=== PATIENT | female | born 1950 | race American Indian/Alaskan Native ===

== ENCOUNTER 2021-04-20 17:11 | Inpatient (IN) | payer MEDICARE, BC ==
[2021-04-20] MEDS ORDERED: Albuterol 0.083% 2.5 MG/3 ML Neb Soln NEB PRN (17:59)
[2021-04-20] MEDS ORDERED: Ondansetron 4 MG/2 ML SDV IV PRN (17:59)
[2021-04-20] MEDS ORDERED: LORazepam 2 MG/ML SDV IVPUSH PRN (17:59)
[2021-04-20] MEDS ORDERED: Ondansetron 4 MG Tab.DIS PO PRN (17:59)
[2021-04-20] MEDS ORDERED: Magnesium Hydroxide 400 MG/5 ML Susp 30 ML Cup PO PRN (17:59)
[2021-04-20] MEDS ORDERED: Benzonatate 100 MG Cap PO PRN (18:03)
[2021-04-20] MEDS ORDERED: Codeine/guaiFENesin 10-100 MG/5 ML Syrup 5 ML Cup PO PRN (18:04)
--- NOTE | 2021-04-20 18:13 | PCM.HP.2 ---
H&P History of Present Illness - General Date of Service: 04/20/21 Admit Problem/Dx: Admission Diagnosis/Problem Admission Diagnosis/Problem Bronchiectasis with acute exacerbation Source of Information: Patient, Family, Provider History Limitations: Reports: No Limitations - History of Present Illness Initial Comments - Free Text/Narative: CC: I keep coughing HPI: Iris presented initially to the [facility] and was sent for admission because the local hospital was full. She reports 4 days of progressive cough and shortness of breath as well as weakness. Cough is productive for yellow sputum. She has had subjective fevers and chills at home. She has had a decrease in her appetite, energy and strength. Initially her shortness of breath was mild but has progressed over the last few days to the point that she is short of breath walking even short distances. She is not able to speak in a full sentence without a short pause to catch her breath. She does not report any pleuritic chest pain. She is not aware of any sick contacts. She has traveled to visit her sister in an acute rehab facility over the past couple of weeks. No one else in the home is sick. She does have a history of bronchiectasis and is on rotating antibiotics for 1 week out of the month and when she gets sick she takes azithromycin daily. She has been taking this daily for the past week and has continued to get worse. She does not report myalgias or an increase in joint discomfort with her chronic rheumatoid arthritis. Work-up at the clinic revealed a normal white blood cell count. Chest x-ray did not reveal any definitive infiltrate. She was noted to be hypoxic and required supplemental oxygen. She was given ceftriaxone, azithromycin as well as Solu- Medrol. She was sent here for direct admission. - Related Data Allergies/Adverse Reactions: Allergies Allergy/AdvReac Type Severity Reaction Status Date / Time amoxicillin [From Augmentin] Allergy Rash Verified 04/20/21 17:30 clavulanic acid Allergy Rash Verified 04/20/21 17:30 [From Augmentin] doxycycline Allergy Rash Verified 04/20/21 17:30 gold Au 198 Allergy Rash Verified 04/20/21 17:30 leflunomide [From Arava] Allergy Rash Verified 04/20/21 17:30 methotrexate Allergy Rash Verified 04/20/21 17:30 sulfamethoxazole Allergy Rash Verified 04/20/21 17:30 [From Bactrim] trimethoprim [From Bactrim] Allergy Rash Verified 04/20/21 17:30 Home Medications: Home Meds Acetylcysteine [Mucomyst 20%] 200 mg NEB TID PRN 04/20/21 [History] Albuterol [Proventil Neb Soln] 2.5 mg NEB TID PRN 04/20/21 [History] Azithromycin 500 mg PO DAILY 04/20/21 [History] Calcium Carbonate/Vitamin D3 [Calcium 500 + Vit D 400] 1 tab PO BID 04/20/21 [History] Cefdinir [Omnicef] 300 mg PO ASDIRECTED 04/20/21 [History] Hydroxychloroquine Sulfate [Plaquenil] 200 mg PO BID 04/20/21 [History] Sodium Chloride for Inhalation [Sodium Chloride] 3 ml IH TID PRN 04/20/21 [History] guaiFENesin [Mucinex] 1,200 mg PO BID 04/20/21 [History] predniSONE [Prednisone] 5 mg PO PCDINNER 04/20/21 [History] Past Medical History Respiratory History: Reports: Other (See Below) (bronchiectasis since childhood) Musculoskeletal History: Reports: RA Social & Family History - Family History Respiratory: Denies: COPD, Interstitial Lung Disease - Tobacco Use Tobacco Use Status *Q: Never Tobacco User Tobacco Use Within Last Twelve Months: No - Alcohol Use Alcohol Use History: No Alcohol Use in Last Twelve Months: No - Recreational Drug Use Recreational Drug Use: No Drug Use in Last 12 Months: No H&P Review of Systems - Review of Systems: Review Of Systems: See Below Free Text/Narrative: A complete 12 point review of systems was obtained. Pertinent positives and negatives are noted in the history of present illness. All other systems were reviewed and were negative except as noted. Exam - Exam Exam: See Below - Vital Signs Vital Signs: Last Vital Signs Temp 36.6 C 04/20/21 17:28 Pulse 96 04/20/21 17:28 Resp 16 04/20/21 17:28 BP 130/78 04/20/21 17:28 Pulse Ox 93 L 04/20/21 17:28 Weight: 88.042 kg - Exam Quality Assessment: Supplemental Oxygen General: Alert, Oriented, Cooperative, Mild Distress HEENT: Conjunctiva Clear. No: Mucosa Moist & [place] (dry), Scleral Icterus Neck: Supple, Trachea Midline. No: JVD Lungs: Crackles (diffuse L>R posteriorly and R>L anteriorly ), Wheezing (mild diffuse mid to end expiratory L>R). No: Normal Respiratory Effort (increased work of breathing ) Cardiovascular: Regular Rate, Regular Rhythm. No: Systolic Murmur GI/Abdominal Exam: Normal Bowel Sounds, Soft, Non-Tender, No Distention Back Exam: Normal Inspection, Full Range of Motion Extremities: No Pedal Edema, Other (enlarged MCP and PCP joints on both hands c/w RA). No: Joint Swelling, Increased Warmth Peripheral Pulses: 2+: Dorsalis Pedis (L), Dorsalis Pedis (R) Skin: Warm, Dry. No: Rash Neuro Extensive - Mental Status: Alert, Oriented x3, Nl Response to Commands Neuro Extensive - Motor, Sensory, Reflexes: No: Dysarthria, Abnormal Motor, Tremor Psychiatric: Alert, Normal Affect - Patient Data Imaging Impressions Last 24 hrs: CXR-images not available for review-per report lungs were clear with no obvious mass or infiltrate #1 Interpretation EKG Date: 04/20/21 Time: 13:30 Rhythm: Other (Sinus tachycardia) Rate (Beats/Min): 103 Seaview: RAD-Right Seaview Deviation P-Wave: Present QRS: Normal ST-T: Normal QT: Normal AL/PQ Interval: Normal Comparison: NA - No Prior EKG EKG Interpretation Comments: This EKG image was personally reviewed at the time of admission Sepsis Event Note - Evaluation Sepsis Screening Result: No Definite Risk - Focused Exam Vital Signs: Vital Signs Temp Pulse Resp BP Pulse Ox 04/20/21 17:28 36.6 C 96 16 130/78 93 L *Q Meaningful Use (ADM) - VTE Risk Assess *Q Each Risk Factor Represents 1 Point: Obesity ( BMI > 25 kg/m2), Serious lung disease including pneumonia, Abnormal Pulmonary Function (COPD) Total Score 1 Point Risk Factors: 3 Each Risk Factor Represents 2 Points: Age 60 - 74 Years Total Score 2 Point Risk Factors: 2 Each Risk Factor Represents 3 Points: None Total Score 3 Point Risk Factors: 0 Each Risk Factor Represents 5 Points: None Total Score 5 Point Risk Factors: 0 Venous Thromboembolism Risk Factor Score *Q: 5 - Problem List (1) Bronchiectasis with acute exacerbation Status: Acute Current Visit: Yes (2) Acute respiratory failure with hypoxia SNOMED Code(s): 27302812, 336997334 ICD Code: J96.01 - ACUTE RESPIRATORY FAILURE WITH HYPOXIA Status: Acute Current Visit: Yes (3) Rheumatoid arthritis SNOMED Code(s): 55576499 ICD Code: M06.9 - RHEUMATOID ARTHRITIS, UNSPECIFIED Status: Chronic Current Visit: Yes Qualifiers: Rheumatoid arthritis location: multiple sites Rheumatoid factor presence: unspecified presence Qualified Code(s): M06.9 - Rheumatoid arthritis, unspecified Problem List Initiated/Reviewed/Updated: Yes Orders Last 24hrs: Active Orders 24 hr Category Date Time Status Patient Status [ADT] Routine ADT 04/20/21 17:59 Ordered Antiembolic Devices [RC] .Routine Care 04/20/21 17:59 Ordered Intake and Output [RC] QSHIFT Care 04/20/21 17:59 Ordered Notify Provider Vital Signs [RC] ASDIRECTED Care 04/20/21 17:59 Ordered Oxygen Therapy [RC] PRN Care 04/20/21 17:59 Ordered RT Aerosol Therapy [RC] ASDIRECTED Care 04/20/21 18:02 Ordered Up With Assistance [RC] ASDIRECTED Care 04/20/21 17:59 Ordered VTE/DVT Education [RC] Per Unit Routine Care 04/20/21 17:59 Ordered Vital Signs [RC] Q4H Care 04/20/21 17:59 Ordered Regular Diet [DIET] Diet 04/20/21 Dinner Ordered BASIC METABOLIC PANEL,BMP [CHEM] AM Lab 04/21/21 05:11 Ordered C-REACTIVE PROTEIN [CHEM] AM Lab 04/21/21 05:11 Ordered CBC W/O DIFF,HEMOGRAM [HEME] AM Lab 04/21/21 05:11 Ordered CULTURE RESPIRATORY + SMEAR [RM] Routine Lab 04/20/21 17:58 Ordered Acetaminophen [TylenoL] Med 04/20/21 17:59 Ordered 650 mg PO Q4H PRN Acetylcysteine [Mucomyst 20%] Med 04/20/21 21:00 Ordered 200 mg NEB TIDRT Albuterol [Proventil Neb Soln] Med 04/20/21 17:59 Ordered 2.5 mg NEB Q4H PRN Albuterol/Ipratropium [DuoNeb 3.0-0.5 MG/3 ML] Med 04/20/21 22:00 Ordered 3 ml NEB QID Benzonatate [Tessalon Perles] Med 04/20/21 18:03 Ordered 100 mg PO TID PRN Codeine/guaiFENesin [Robitussin AC] Med 04/20/21 18:04 Ordered 10 ml PO Q6H PRN Docusate Sodium/Sennosides [Senna Plus] Med 04/20/21 17:59 Ordered 1 tab PO BID PRN Hydroxychloroquine [Plaquenil] Med 04/20/21 21:00 Ordered 200 mg PO BID LORazepam [Ativan] Med 04/20/21 17:59 Ordered 0.5 mg IVPUSH Q4H PRN Lactobacillus Rhamnosus GG [Culturelle] Med 04/20/21 21:00 Ordered 1 cap PO BID Levofloxacin/Dextrose 5%-Water [Levaquin in D5W 750 MG/ Med 04/20/21 18:15 Ordered 150 ML] 750 mg Premix Bag 1 bag IV Q24H Magnesium Hydroxide [Milk of Magnesia] Med 04/20/21 17:59 Ordered 30 ml PO Q12H PRN Melatonin Med 04/20/21 17:59 Ordered 9 mg PO BEDTIME PRN Ondansetron [Zofran ODT] Med 04/20/21 17:59 Ordered 4 mg PO Q6H PRN Ondansetron [Zofran] Med 04/20/21 17:59 Ordered 4 mg IV Q6H PRN Sodium Chloride 0.9% [Normal Saline] 1,000 ml Med 04/20/21 18:00 Ordered IV ASDIRECTED cefTRIAXone [Rocephin] 1 gm Med 04/21/21 14:00 Ordered Sodium Chloride 0.9% [Normal Saline] 50 ml IV Q24H methylPREDNISolone Sod Succ [Solu-MEDROL] Med 04/20/21 21:00 Once 62.5 mg IVPUSH ONETIME ONE oxyCODONE Med 04/20/21 17:59 Ordered 5 mg PO Q4H PRN predniSONE Med 04/21/21 08:00 Ordered 40 mg PO WITHBREAKFAST RT Acapella [RESPCARE] Routine Oth 04/20/21 18:04 Ordered Sequential Compression Device [OM.PC] Routine Oth 04/20/21 17:59 Ordered Resuscitation Status Routine Resus Stat 04/20/21 17:59 Ordered Medication Orders Acetaminophen (Acetaminophen 325 Mg Tab) 650 mg PO Q4H PRN PRN Reason: Pain (Mild 1-3)/fever Acetylcysteine (Acetylcysteine 20% 200 Mg/Ml 4 Ml Nebulizer Soln Sdv) 200 mg NEB TIDRT KEVON Albuterol (Albuterol 0.083% 2.5 Mg/3 Ml Neb Soln) 2.5 mg NEB Q4H PRN PRN Reason: Shortness Of Breath/wheezing Albuterol/Ipratropium (Albuterol/Ipratropium 3.0-0.5 Mg/3 Ml Neb Soln) 3 ml NEB QID KEVON Benzonatate (Benzonatate 100 Mg Cap) 100 mg PO TID PRN PRN Reason: Cough Guaifenesin/Codeine Phosphate (Codeine/Guaifenesin 10-100 Mg/5 Ml Syrup 5 Ml Cup) 10 ml PO Q6H PRN PRN Reason: Cough Hydroxychloroquine Sulfate (Hydroxychloroquine 200 Mg Tab) 200 mg PO BID [facility] Sodium Chloride (Normal Saline) 1,000 mls @ 100 mls/hr IV ASDIRECTED [facility] Levofloxacin/Dextrose 750 mg/ (Premix) 150 mls @ 100 mls/hr IV Q24H KEVON Ceftriaxone Sodium 1 gm/ (Sodium Chloride) 50 mls @ 100 mls/hr IV Q24H KEVON Lactobacillus Rhamnosus (Lactobacillus Rhamnosus Gg (Probiotic) Cap) 1 cap PO BID KEVON Lorazepam (Lorazepam 2 Mg/Ml Sdv) 0.5 mg IVPUSH Q4H PRN PRN Reason: Nausea/Vomiting Magnesium Hydroxide (Magnesium Hydroxide 400 Mg/5 Ml Susp 30 Ml Cup) 30 ml PO Q12H PRN PRN Reason: Constipation Melatonin (Melatonin 3 Mg Tab) 9 mg PO BEDTIME PRN PRN Reason: Sleep Methylprednisolone Sodium Succinate (Methylprednisolone Sodium Succinate 125 Mg/2 Ml Sdv) 62.5 mg IVPUSH ONETIME ONE Stop: 04/20/21 21:01 Ondansetron HCl (Ondansetron 4 Mg/2 Ml Sdv) 4 mg IV Q6H PRN PRN Reason: Nausea/Vomiting Ondansetron HCl (Ondansetron 4 Mg Tab.Dis) 4 mg PO Q6H PRN PRN Reason: Nausea able to take PO Oxycodone HCl (Oxycodone 5 Mg Tab) 5 mg PO Q4H PRN PRN Reason: Pain (moderate 4-6) Prednisone (Prednisone 20 Mg Tab) 40 mg PO WITHBREAKFAST KEVON Senna/Docusate Sodium (Docusate Sodium/Sennosides 50-8.6 Mg Tab) 1 tab PO BID PRN PRN Reason: Constipation Assessment/Plan Comment:: ASSESSMENT AND PLAN - Bronchiectasis with acute exacerbation-complicated by reactive airway disease as well as acute respiratory failure with hypoxia. Currently requiring supplemental oxygen. She has been declining despite outpatient antibiotics. History of previous cultures growing out Pseudomonas. -Antibiotic coverage with levofloxacin and ceftriaxone -Scheduled and as needed albuterol nebulizers -Scheduled acetylcysteine nebulizers -IV steroids today, transition to prednisone in the morning -Acapella -Respiratory culture Rheumatoid arthritis-chronic. No increase in symptoms recently. She is on chronic prednisone therapy. -She will be on increased steroid dosing as above -Continue hydroxychloroquine Maintenance issues - -DVT prophylaxis-mechanical -GI prophylaxis-not indicated -Nutrition-regular -Aiken catheter-not indicated CODE STATUS -CPR okay but no intubation Admission justification -this patient will be admitted for inpatient services and is medically appropriate meeting medical necessity for inpatient admission as outlined in my documentation. I reasonably expect the patient will require inpatient services that span a period time over 2 midnights. I reasonably expect this patient to be discharged or transferred within 96 hours [facility]. Disposition -I anticipate discharge home after the hospital stay Primary care physician - Maranda Tineo M.D. - Mortality Measure Prognosis:: Good
[2021-04-20] MEDS: Levofloxacin/Dextrose 5%-Water 750 MG in Premix Bag 1 BAG IV SCH (18:29)
[2021-04-20] MEDS: Acetaminophen 325 MG Tab PO PRN (18:30)
[2021-04-20] MEDS: Sodium Chloride 0.9% 1,000 ML IV SCH (18:30)
[2021-04-20] MEDS ORDERED: LORazepam 0.5 MG Tab ONE (18:43)
[2021-04-20] MEDS: LORazepam 0.5 MG Tab PO PRN (18:47)
[2021-04-20] MEDS: Hydroxychloroquine 200 MG Tab PO SCH (20:52)
[2021-04-20] MEDS: Lactobacillus Rhamnosus GG (Probiotic) Cap PO SCH (20:52)
[2021-04-20] MEDS: Acetylcysteine 20% 200 MG/ML 4 ML Nebulizer Soln SDV NEB SCH (20:53)
[2021-04-20] MEDS: Albuterol/Ipratropium 3.0-0.5 MG/3 ML Neb Soln NEB SCH (20:53)
[2021-04-20] MEDS ORDERED: methylPREDNISolone Sodium Succinate 125 MG/2 ML SDV IVPUSH ONE (21:00)
[2021-04-20] MEDS: Melatonin 3 MG Tab PO PRN (21:23)
[2021-04-21] MEDS: LORazepam 0.5 MG Tab PO PRN ×3 (03:55→21:09)
[2021-04-21] MEDS: Acetaminophen 325 MG Tab PO PRN ×2 (04:22→21:08)
[2021-04-21] MEDS: Sodium Chloride 0.9% 1,000 ML IV SCH (05:43)
[2021-04-21] MEDS: Albuterol/Ipratropium 3.0-0.5 MG/3 ML Neb Soln NEB SCH ×4 (07:01→21:09)
[2021-04-21] MEDS: Acetylcysteine 20% 200 MG/ML 4 ML Nebulizer Soln SDV NEB SCH ×3 (07:39→21:10)
[2021-04-21] MEDS: Hydroxychloroquine 200 MG Tab PO SCH ×2 (08:22→21:18)
[2021-04-21] MEDS: Lactobacillus Rhamnosus GG (Probiotic) Cap PO SCH ×2 (08:22→21:18)
[2021-04-21] MEDS: predniSONE 20 MG Tab PO SCH (08:22)
--- NOTE | 2021-04-21 09:46 | PCM.PN ---
- General Info Date of Service: 04/21/21 Subjective Update: There were no acute events overnight. Patient did have some mild anxiety in the evening that resolved after a dose of lorazepam. She did not have any fevers. She feels a little less short of breath today but still gets winded with activity. Cough continues to be loose and occasionally productive. No chest pain reported. No nausea. Appetite is a little better today. Still requiring supplemental oxygen. Functional Status: Reports: Pain Controlled - Review of Systems General: Denies: Fever - Patient Data Vitals - Most Recent: Last Vital Signs Temp 36.4 C 04/21/21 08:00 Pulse 102 H 04/21/21 08:00 Resp 24 H 04/21/21 08:00 BP 107/59 L 04/21/21 08:00 Pulse Ox 92 L 04/21/21 08:00 Weight - Most Recent: 88.042 kg I&O - Last 24 Hours: Intake & Output 04/20/21 04/21/21 04/21/21 22:59 06:59 14:59 Intake Total 1820 Output Total 100 900 Balance -100 920 Lab Results Last 24 Hours: Laboratory Results - last 24 hr 04/21/21 04/21/21 Range/Units 05:00 05:00 WBC 13.1 H (4.5-11.0) K/uL RBC 4.22 (3.30-5.50) M/uL Hgb 12.1 (12.0-15.0) g/dL Hct 38.9 (36.0-48.0) % MCV 92 (80-98) fL MCH 29 (27-31) pg MCHC 31 L (32-36) % Plt Count 282 (150-400) K/uL Sodium 139 L (140-148) mmol/L Potassium 4.2 (3.6-5.2) mmol/L Chloride 104 (100-108) mmol/L Carbon Dioxide 28 (21-32) mmol/L Anion Gap 11.2 (5.0-14.0) mmol/L BUN 11 (7-18) mg/dL Creatinine 0.8 (0.6-1.0) mg/dL Est Cr Clr Drug Dosing 65.06 mL/min Estimated GFR (MDRD) > 60 (>60) Glucose 155 H (74-106) mg/dL Calcium 7.9 L (8.5-10.1) mg/dL C-Reactive Protein 13.71 H (0.0-0.3) mg/dL Kwame Results Last 24 Hours: Microbiology 04/20/21 17:58 Gram Stain - Final Sputum - Expectorated Med Orders - Current: Current Medications Acetaminophen (Acetaminophen 325 Mg Tab) 650 mg PO Q4H PRN PRN Reason: Pain (Mild 1-3)/fever Last Admin: 04/21/21 04:22 Dose: 650 mg Documented by: Acetylcysteine (Acetylcysteine 20% 200 Mg/Ml 4 Ml Nebulizer Soln Sdv) 200 mg NEB TID@0700,1500,2100 [facility] Albuterol (Albuterol 0.083% 2.5 Mg/3 Ml Neb Soln) 2.5 mg NEB Q4H PRN PRN Reason: Shortness Of Breath/wheezing Last Admin: 04/21/21 04:16 Dose: 2.5 mg Documented by: Albuterol/Ipratropium (Albuterol/Ipratropium 3.0-0.5 Mg/3 Ml Neb Soln) 3 ml NEB QIDRT [facility] Last Admin: 04/21/21 07:01 Dose: 3 ml Documented by: Benzonatate (Benzonatate 100 Mg Cap) 100 mg PO TID PRN PRN Reason: Cough Guaifenesin/Codeine Phosphate (Codeine/Guaifenesin 10-100 Mg/5 Ml Syrup 5 Ml Cup) 10 ml PO Q6H PRN PRN Reason: Cough Hydroxychloroquine Sulfate (Hydroxychloroquine 200 Mg Tab) 200 mg PO BID [facility] Last Admin: 04/21/21 08:22 Dose: 200 mg Documented by: Levofloxacin/Dextrose 750 mg/ (Premix) 150 mls @ 100 mls/hr IV Q24H [facility] Last Admin: 04/20/21 18:29 Dose: 100 mls/hr Documented by: Ceftriaxone Sodium 1 gm/ (Sodium Chloride) 50 mls @ 100 mls/hr IV Q24H [facility] Lactobacillus Rhamnosus (Lactobacillus Rhamnosus Gg (Probiotic) Cap) 1 cap PO BID [facility] Last Admin: 04/21/21 08:22 Dose: 1 cap Documented by: Lorazepam (Lorazepam 2 Mg/Ml Sdv) 0.5 mg IVPUSH Q4H PRN PRN Reason: Nausea/Vomiting Lorazepam (Lorazepam 0.5 Mg Tab) 0.5 mg PO Q4H PRN PRN Reason: Anxiety Last Admin: 04/21/21 03:55 Dose: 0.5 mg Documented by: Magnesium Hydroxide (Magnesium Hydroxide 400 Mg/5 Ml Susp 30 Ml Cup) 30 ml PO Q12H PRN PRN Reason: Constipation Melatonin (Melatonin 3 Mg Tab) 9 mg PO BEDTIME PRN PRN Reason: Sleep Last Admin: 04/20/21 21:23 Dose: 9 mg Documented by: Ondansetron HCl (Ondansetron 4 Mg/2 Ml Sdv) 4 mg IV Q6H PRN PRN Reason: Nausea/Vomiting Ondansetron HCl (Ondansetron 4 Mg Tab.Dis) 4 mg PO Q6H PRN PRN Reason: Nausea able to take PO Oxycodone HCl (Oxycodone 5 Mg Tab) 5 mg PO Q4H PRN PRN Reason: Pain (moderate 4-6) Prednisone (Prednisone 20 Mg Tab) 40 mg PO WITHBREAKFAST [facility] Last Admin: 04/21/21 08:22 Dose: 40 mg Documented by: Senna/Docusate Sodium (Docusate Sodium/Sennosides 50-8.6 Mg Tab) 1 tab PO BID PRN PRN Reason: Constipation Discontinued Medications Acetylcysteine (Acetylcysteine 20% 200 Mg/Ml 4 Ml Nebulizer Soln Sdv) 200 mg NEB TIDRT [facility] Last Admin: 04/21/21 07:39 Dose: 200 mg Documented by: Sodium Chloride (Normal Saline) 1,000 mls @ 100 mls/hr IV ASDIRECTED [facility] Last Admin: 04/21/21 05:43 Dose: 100 mls/hr Documented by: Lorazepam (Lorazepam 0.5 Mg Tab) Confirm Administered Dose 0.5 mg .ROUTE .STK- MED ONE Stop: 04/20/21 18:44 Last Admin: 04/20/21 18:47 Dose: Not Given Documented by: Methylprednisolone Sodium Succinate (Methylprednisolone Sodium Succinate 125 Mg/2 Ml Sdv) 62.5 mg IVPUSH ONETIME ONE Stop: 04/20/21 21:01 Last Admin: 04/20/21 20:52 Dose: 62.5 mg Documented by: - Exam Quality Assessment: Supplemental Oxygen General: Alert, Oriented, Cooperative, No Acute Distress Lungs: Normal Respiratory Effort, Crackles (mild diffuse) Cardiovascular: Regular Rate, Regular Rhythm GI/Abdominal Exam: Soft, No Distention Extremities: No Pedal Edema. No: Increased Warmth Skin: Warm, Dry Psy/Mental Status: Alert, Normal Affect - Patient Data Lab Results Last 24 hrs: Laboratory Results - last 24 hr 04/21/21 04/21/21 Range/Units 05:00 05:00 WBC 13.1 H (4.5-11.0) K/uL RBC 4.22 (3.30-5.50) M/uL Hgb 12.1 (12.0-15.0) g/dL Hct 38.9 (36.0-48.0) % MCV 92 (80-98) fL MCH 29 (27-31) pg MCHC 31 L (32-36) % Plt Count 282 (150-400) K/uL Sodium 139 L (140-148) mmol/L Potassium 4.2 (3.6-5.2) mmol/L Chloride 104 (100-108) mmol/L Carbon Dioxide 28 (21-32) mmol/L Anion Gap 11.2 (5.0-14.0) mmol/L BUN 11 (7-18) mg/dL Creatinine 0.8 (0.6-1.0) mg/dL Est Cr Clr Drug Dosing 65.06 mL/min Estimated GFR (MDRD) > 60 (>60) Glucose 155 H (74-106) mg/dL Calcium 7.9 L (8.5-10.1) mg/dL C-Reactive Protein 13.71 H (0.0-0.3) mg/dL Result Diagrams: 04/21/21 05:00 04/21/21 05:00 Kwame Results Last 24 hrs: Microbiology 04/20/21 17:58 Gram Stain - Final Sputum - Expectorated Sepsis Event Note - Evaluation Sepsis Screening Result: Sepsis Risk - Focused Exam Vital Signs: Vital Signs Temp Pulse Resp BP Pulse Ox 04/21/21 08:00 36.4 C 102 H 24 H 107/59 L 92 L 04/21/21 04:00 36.6 C 28 H 140/78 94 L 04/21/21 00:00 36.6 C 24 H 104/56 L 97 - Problem List & Annotations (1) Bronchiectasis with acute exacerbation Status: Acute Current Visit: Yes (2) Acute respiratory failure with hypoxia SNOMED Code(s): 96433548, 990046909 Code(s): J96.01 - ACUTE RESPIRATORY FAILURE WITH HYPOXIA Status: Acute Current Visit: Yes (3) Rheumatoid arthritis SNOMED Code(s): 50917389 Code(s): M06.9 - RHEUMATOID ARTHRITIS, UNSPECIFIED Status: Chronic Current Visit: Yes Qualifiers: Rheumatoid arthritis location: multiple sites Rheumatoid factor presence: unspecified presence Qualified Code(s): M06.9 - Rheumatoid arthritis, unspecified - Problem List Review Problem List Initiated/Reviewed/Updated: Yes - My Orders Last 24 Hours: My Active Orders 04/20/21 Dinner Regular Diet [DIET] 04/20/21 17:58 CULTURE RESPIRATORY + SMEAR [RM] Routine 04/20/21 17:59 Patient Status [ADT] Routine Antiembolic Devices [RC] .Routine Intake and Output [RC] QSHIFT Notify Provider Vital Signs [RC] ASDIRECTED Oxygen Therapy [RC] PRN Up With Assistance [RC] ASDIRECTED Vital Signs [RC] Q4H Acetaminophen [TylenoL] 650 mg PO Q4H PRN Albuterol [Proventil Neb Soln] 2.5 mg NEB Q4H PRN Docusate Sodium/Sennosides [Senna Plus] 1 tab PO BID PRN LORazepam [Ativan] 0.5 mg IVPUSH Q4H PRN Magnesium Hydroxide [Milk of Magnesia] 30 ml PO Q12H PRN Melatonin 9 mg PO BEDTIME PRN Ondansetron [Zofran ODT] 4 mg PO Q6H PRN Ondansetron [Zofran] 4 mg IV Q6H PRN oxyCODONE 5 mg PO Q4H PRN Sequential Compression Device [OM.PC] Routine Resuscitation Status Routine 04/20/21 18:00 Levofloxacin/Dextrose 5%-Water [Levaquin in D5W 750 MG/150 ML] 750 mg Premix Bag 1 bag IV Q24H 04/20/21 18:02 RT Aerosol Therapy [RC] ASDIRECTED 04/20/21 18:03 Benzonatate [Tessalon Perles] 100 mg PO TID PRN 04/20/21 18:04 Codeine/guaiFENesin [Robitussin AC] 10 ml PO Q6H PRN RT Acapella [RESPCARE] Routine 04/20/21 18:33 LORazepam [Ativan] 0.5 mg PO Q4H PRN 04/20/21 21:00 Albuterol/Ipratropium [DuoNeb 3.0-0.5 MG/3 ML] 3 ml NEB QIDRT Hydroxychloroquine [Plaquenil] 200 mg PO BID Lactobacillus Rhamnosus GG [Culturelle] 1 cap PO BID 04/21/21 08:00 predniSONE 40 mg PO WITHBREAKFAST 04/21/21 09:45 Convert IV to Saline Lock [OM.PC] Routine 04/21/21 14:00 cefTRIAXone [Rocephin] 1 gm Sodium Chloride 0.9% [Normal Saline] 50 ml IV Q24H 04/21/21 15:00 Acetylcysteine [Mucomyst 20%] 200 mg NEB TID@0700,1500,2100 - Plan Plan:: ASSESSMENT AND PLAN - Bronchiectasis with acute exacerbation-complicated by reactive airway disease as well as acute respiratory failure with hypoxia. Still requiring oxygen. Sputum culture pending. Symptomatically a little better today. Vital signs have been stable. -Antibiotic coverage with levofloxacin and ceftriaxone -Scheduled and as needed albuterol nebulizers -Scheduled acetylcysteine nebulizers -Continue prednisone -Acapella -Follow-up respiratory culture Rheumatoid arthritis-chronic. No increase in symptoms recently. She is on chronic prednisone therapy. -She will be on increased steroid dosing as above -Continue hydroxychloroquine Maintenance issues - -DVT prophylaxis-mechanical -GI prophylaxis-not indicated -Nutrition-regular Disposition -I anticipate discharge home after the hospital stay Primary care physician - Maranda Tineo M.D.
[2021-04-21] MEDS: oxyCODONE 5 MG Tab PO PRN ×2 (11:22→16:46)
[2021-04-21] MEDS: cefTRIAXone 1 GM in Sodium Chloride 0.9% 50 ML IV SCH (15:06)
[2021-04-21] MEDS: Levofloxacin/Dextrose 5%-Water 750 MG in Premix Bag 1 BAG IV SCH (17:54)
[2021-04-21] MEDS: Melatonin 3 MG Tab PO PRN (21:09)
[2021-04-22] MEDS: Acetylcysteine 20% 200 MG/ML 4 ML Nebulizer Soln SDV NEB SCH ×3 (07:09→21:06)
[2021-04-22] MEDS: Albuterol/Ipratropium 3.0-0.5 MG/3 ML Neb Soln NEB SCH ×4 (07:09→21:06)
[2021-04-22] MEDS: predniSONE 20 MG Tab PO SCH (08:23)
[2021-04-22] MEDS: Lactobacillus Rhamnosus GG (Probiotic) Cap PO SCH ×2 (08:24→21:05)
[2021-04-22] MEDS: Hydroxychloroquine 200 MG Tab PO SCH ×2 (08:24→21:06)
[2021-04-22] MEDS: oxyCODONE 5 MG Tab PO PRN (08:33)
--- NOTE | 2021-04-22 09:41 | PCM.PN ---
- General Info Date of Service: 04/22/21 Subjective Update: No acute events overnight. Patient did not have any fevers. She has continued to require supplemental oxygen. She continues to feel weak and short of breath but think she is a little better again today. She was able to walk to the bathroom to clean up yesterday. Her goal today is to go for a walk outside of her room and hopefully without oxygen. Sputum culture growing normal respiratory jenny. Appetite improving. Functional Status: Reports: Pain Controlled, Tolerating Diet - Review of Systems General: Reports: Weakness. Denies: Fever Pulmonary: Reports: Shortness of Breath, Cough - Patient Data Vitals - Most Recent: Last Vital Signs Temp 36.2 C 04/22/21 08:00 Pulse 78 04/22/21 08:00 Resp 18 04/22/21 08:00 BP 99/51 L 04/22/21 08:00 Pulse Ox 93 L 04/22/21 08:00 Weight - Most Recent: 88.042 kg I&O - Last 24 Hours: Intake & Output 04/21/21 04/22/21 04/22/21 22:59 06:59 14:59 Intake Total 600 Balance 600 Kwame Results Last 24 Hours: Microbiology 04/20/21 17:58 Gram Stain - Final Sputum - Expectorated Respiratory Culture - Preliminary NORMAL RESPIRATORY JENNY 1 DAY Med Orders - Current: Current Medications Acetaminophen (Acetaminophen 325 Mg Tab) 650 mg PO Q4H PRN PRN Reason: Pain (Mild 1-3)/fever Last Admin: 04/21/21 21:08 Dose: 650 mg Documented by: Acetylcysteine (Acetylcysteine 20% 200 Mg/Ml 4 Ml Nebulizer Soln Sdv) 200 mg NEB TID@0700,1500,2100 [facility] Last Admin: 04/22/21 07:09 Dose: 200 mg Documented by: Albuterol (Albuterol 0.083% 2.5 Mg/3 Ml Neb Soln) 2.5 mg NEB Q4H PRN PRN Reason: Shortness Of Breath/wheezing Last Admin: 04/21/21 04:16 Dose: 2.5 mg Documented by: Albuterol/Ipratropium (Albuterol/Ipratropium 3.0-0.5 Mg/3 Ml Neb Soln) 3 ml NEB QIDRT [facility] Last Admin: 04/22/21 07:09 Dose: 3 ml Documented by: Benzonatate (Benzonatate 100 Mg Cap) 100 mg PO TID PRN PRN Reason: Cough Last Admin: 04/21/21 11:26 Dose: 100 mg Documented by: Guaifenesin/Codeine Phosphate (Codeine/Guaifenesin 10-100 Mg/5 Ml Syrup 5 Ml Cup) 10 ml PO Q6H PRN PRN Reason: Cough Hydroxychloroquine Sulfate (Hydroxychloroquine 200 Mg Tab) 200 mg PO BID [facility] Last Admin: 04/22/21 08:24 Dose: 200 mg Documented by: Ceftriaxone Sodium 1 gm/ (Sodium Chloride) 50 mls @ 100 mls/hr IV Q24H [facility] Last Admin: 04/21/21 15:06 Dose: 100 mls/hr Documented by: Lactobacillus Rhamnosus (Lactobacillus Rhamnosus Gg (Probiotic) Cap) 1 cap PO BID [facility] Last Admin: 04/22/21 08:24 Dose: 1 cap Documented by: Lorazepam (Lorazepam 2 Mg/Ml Sdv) 0.5 mg IVPUSH Q4H PRN PRN Reason: Nausea/Vomiting Lorazepam (Lorazepam 0.5 Mg Tab) 0.5 mg PO Q4H PRN PRN Reason: Anxiety Last Admin: 04/21/21 21:09 Dose: 0.5 mg Documented by: Magnesium Hydroxide (Magnesium Hydroxide 400 Mg/5 Ml Susp 30 Ml Cup) 30 ml PO Q12H PRN PRN Reason: Constipation Melatonin (Melatonin 3 Mg Tab) 9 mg PO BEDTIME PRN PRN Reason: Sleep Last Admin: 04/21/21 21:09 Dose: 9 mg Documented by: Ondansetron HCl (Ondansetron 4 Mg/2 Ml Sdv) 4 mg IV Q6H PRN PRN Reason: Nausea/Vomiting Ondansetron HCl (Ondansetron 4 Mg Tab.Dis) 4 mg PO Q6H PRN PRN Reason: Nausea able to take PO Oxycodone HCl (Oxycodone 5 Mg Tab) 5 mg PO Q4H PRN PRN Reason: Pain (moderate 4-6) Last Admin: 04/22/21 08:33 Dose: 5 mg Documented by: Prednisone (Prednisone 20 Mg Tab) 40 mg PO WITHBREAKFAST [facility] Last Admin: 04/22/21 08:23 Dose: 40 mg Documented by: Senna/Docusate Sodium (Docusate Sodium/Sennosides 50-8.6 Mg Tab) 1 tab PO BID PRN PRN Reason: Constipation Discontinued Medications Acetylcysteine (Acetylcysteine 20% 200 Mg/Ml 4 Ml Nebulizer Soln Sdv) 200 mg NEB TIDRT [facility] Last Admin: 04/21/21 07:39 Dose: 200 mg Documented by: Sodium Chloride (Normal Saline) 1,000 mls @ 100 mls/hr IV ASDIRECTED [facility] Last Admin: 04/21/21 05:43 Dose: 100 mls/hr Documented by: Levofloxacin/Dextrose 750 mg/ (Premix) 150 mls @ 100 mls/hr IV Q24H [facility] Last Admin: 04/21/21 17:54 Dose: 100 mls/hr Documented by: Lorazepam (Lorazepam 0.5 Mg Tab) Confirm Administered Dose 0.5 mg .ROUTE .STK- MED ONE Stop: 04/20/21 18:44 Last Admin: 04/20/21 18:47 Dose: Not Given Documented by: Methylprednisolone Sodium Succinate (Methylprednisolone Sodium Succinate 125 Mg/2 Ml Sdv) 62.5 mg IVPUSH ONETIME ONE Stop: 04/20/21 21:01 Last Admin: 04/20/21 20:52 Dose: 62.5 mg Documented by: - Exam Quality Assessment: No: Supplemental Oxygen General: Alert, Oriented, Cooperative, No Acute Distress Lungs: Normal Respiratory Effort, Crackles (mild diffuse greatest in lower lung fair ) Cardiovascular: Regular Rate, Regular Rhythm GI/Abdominal Exam: Soft, No Distention Back Exam: Normal Inspection, Paraspinal Tenderness (left mid back ) Extremities: No Pedal Edema. No: Increased Warmth Skin: Warm, Dry Psy/Mental Status: Alert, Normal Affect - Patient Data Result Diagrams: 04/21/21 05:00 04/21/21 05:00 Kwame Results Last 24 hrs: Microbiology 04/20/21 17:58 Gram Stain - Final Sputum - Expectorated Respiratory Culture - Preliminary NORMAL RESPIRATORY JENNY 1 DAY Sepsis Event Note - Evaluation Sepsis Screening Result: Sepsis Risk - Focused Exam Vital Signs: Vital Signs Temp Pulse Resp BP Pulse Ox 04/22/21 08:00 36.2 C 78 18 99/51 L 93 L 04/22/21 04:00 36.5 C 80 24 H 99/51 L 96 04/22/21 00:00 36.4 C 86 16 96/40 L 93 L - Problem List & Annotations (1) Bronchiectasis with acute exacerbation Status: Acute Current Visit: Yes (2) Acute respiratory failure with hypoxia SNOMED Code(s): 14184595, 737929880 Code(s): J96.01 - ACUTE RESPIRATORY FAILURE WITH HYPOXIA Status: Acute Current Visit: Yes (3) Rheumatoid arthritis SNOMED Code(s): 98995194 Code(s): M06.9 - RHEUMATOID ARTHRITIS, UNSPECIFIED Status: Chronic Current Visit: Yes Qualifiers: Rheumatoid arthritis location: multiple sites Rheumatoid factor presence: unspecified presence Qualified Code(s): M06.9 - Rheumatoid arthritis, unspecified - Problem List Review Problem List Initiated/Reviewed/Updated: Yes - My Orders Last 24 Hours: My Active Orders 04/21/21 09:45 Convert IV to Saline Lock [OM.PC] Routine 04/21/21 14:00 cefTRIAXone [Rocephin] 1 gm Sodium Chloride 0.9% [Normal Saline] 50 ml IV Q24H 04/21/21 15:00 Acetylcysteine [Mucomyst 20%] 200 mg NEB TID@0700,1500,2100 04/22/21 18:00 levoFLOXacin [Levaquin] 250 mg PO Q24H levoFLOXacin [Levaquin] 500 mg PO Q24H - Plan Plan:: ASSESSMENT AND PLAN - Bronchiectasis with acute exacerbation-complicated by reactive airway disease as well as acute respiratory failure with hypoxia. Still requiring oxygen but slowly improving. Vital stable other than her ongoing hypoxia. Examination slowly improving. Doing well with mucolytic's and expectorants. -Antibiotic coverage with levofloxacin (PO) and ceftriaxone -Scheduled and as needed albuterol nebulizers -Scheduled acetylcysteine nebulizers -Continue prednisone for a day or 2 more -Supplement oxygen, wean as able -Acapella -Follow-up respiratory culture (negative so far) Rheumatoid arthritis-chronic. Symptoms stable. -She will be on increased steroid dosing as above -Continue hydroxychloroquine Maintenance issues - -DVT prophylaxis-mechanical -GI prophylaxis-not indicated -Nutrition-regular Disposition -I anticipate discharge home after the hospital stay Primary care physician - Maranda Tineo M.D.
[2021-04-22] MEDS: Acetaminophen 325 MG Tab PO PRN ×2 (12:43→21:05)
[2021-04-22] MEDS: cefTRIAXone 1 GM in Sodium Chloride 0.9% 50 ML IV SCH (14:09)
[2021-04-22] MEDS ORDERED: Levofloxacin 500 MG Tab PO SCH (18:00)
[2021-04-22] MEDS ORDERED: Levofloxacin 250 MG Tab PO SCH (18:00)
[2021-04-22] MEDS: Melatonin 3 MG Tab PO PRN (21:05)
[2021-04-23] MEDS: Acetylcysteine 20% 200 MG/ML 4 ML Nebulizer Soln SDV NEB SCH (07:01)
[2021-04-23] MEDS: Albuterol/Ipratropium 3.0-0.5 MG/3 ML Neb Soln NEB SCH ×2 (07:01→10:37)
[2021-04-23] MEDS: Hydroxychloroquine 200 MG Tab PO SCH (08:42)
[2021-04-23] MEDS: Lactobacillus Rhamnosus GG (Probiotic) Cap PO SCH (08:42)
[2021-04-23] MEDS: predniSONE 20 MG Tab PO SCH (08:42)
--- NOTE | 2021-04-23 09:51 | PCM.DCSUM1 ---
Discharge Summary - Hospital Course Brief History: 71-year-old female with history of bronchiectasis and rheumatoid arthritis who presented to an outside hospital with fever and shortness of breath. She was transferred here for admission because no beds were available locally to manage acute respiratory failure with hypoxia secondary to exacerbation of her bronchiectasis. Diagnosis: Stroke: No - Discharge Data Discharge Date: 04/23/21 Discharge Disposition: Home, Self-Care 01 Condition: Good - Referral to Home Health Primary Care Physician: PCP None - Discharge Diagnosis/Problem(s) (1) Bronchiectasis with acute exacerbation Status: Acute (2) Acute respiratory failure with hypoxia SNOMED Code(s): 01702096, 135450995 ICD Code: J96.01 - ACUTE RESPIRATORY FAILURE WITH HYPOXIA Status: Acute (3) Rheumatoid arthritis SNOMED Code(s): 15574677 ICD Code: M06.9 - RHEUMATOID ARTHRITIS, UNSPECIFIED Status: Chronic Qualifiers: Rheumatoid arthritis location: multiple sites Rheumatoid factor presence: unspecified presence Qualified Code(s): M06.9 - Rheumatoid arthritis, unspecified - Patient Summary/Data Hospital Course: Iris presented to an outside clinic for evaluation of shortness of breath and fever. There was concern for occult pneumonia versus exacerbation of her chronic bronchiectasis leading to hypoxic respiratory failure. No beds were available at the hospital where the clinic normally transfers folks so she was sent here for hospital admission and further management. She was started on levofloxacin to cover Pseudomonas as well as ceftriaxone. She received sched uled nebulizers and scheduled mucolytic's. Over the next couple of days we did see slow but steady improvement. We were able to wean her off of the supplemental oxygen over the course of about 48 hours. We did obtain a sputum culture but unfortunately this did not grow out any specific bacteria. She did require steroids for a few days because of wheezing but this has resolved and the steroids will be discontinued. I am going to transition to just the levofloxacin for antibiotic coverage. She did recently have a course of cefdinir as well as a azithromycin. She is off supplemental oxygen. Her strength is suboptimal but slowly improving. She is able to ambulate safely and does not desaturate with activity. She feels comfortable going home at this time. She will be on antibiotics for 5 more days after hospital discharge. She will have follow-up with her primary care. - Patient Instructions Diet: Regular Diet as Tolerated Activity: As Tolerated Showering/Bathing: May Shower Notify Provider of: Fever Other/Special Instructions: 1. You were in the hospital for management of an acute exacerbation of your chronic bronchiectasis. We did not determine a causative bacteria but your condition has been improving with antibiotic therapy. I do recommend additional antibiotic therapy with levofloxacin. Please take 750 mg once daily at about 6 PM for 5 more doses. Your first dose outside of the hospital will be due tonight. While you are taking this antibiotic you should not take your other antibiotics per the rotation prescribed by your cab starter. You may increase your activity towards normal as your body tolerates. If you become short of breath or fatigue you should take a rest. If you do develop mild diarrhea from the antibiotic you can take Imodium per the package instructions. If you develop severe diarrhea please se ek medical attention. 2. Continue your usual home medications as previously prescribed other than the antibiotic rotation which should be held until you are done with the levofloxacin. 3. Follow up with your primary care as scheduled unless your symptoms do not continue to get better or if they get worse then you should follow-up sooner. - Discharge Plan *PRESCRIPTION DRUG MONITORING PROGRAM REVIEWED*: Not Applicable *COPY OF PRESCRIPTION DRUG MONITORING REPORT IN PATIENT NUHA: Not Applicable Prescriptions/Med Rec: Levofloxacin 750 mg PO QPM #5 tablet Home Medications: Home Meds Acetylcysteine [Mucomyst 20%] 200 mg NEB TID PRN 04/20/21 [History] Albuterol [Proventil Neb Soln] 2.5 mg NEB TID PRN 04/20/21 [History] Azithromycin 500 mg PO DAILY 04/20/21 [History] Calcium Carbonate/Vitamin D3 [Calcium 500 + Vit D 400] 1 tab PO BID 04/20/21 [History] Cefdinir [Omnicef] 300 mg PO ASDIRECTED 04/20/21 [History] Ciprofloxacin HCl [Cipro] 250 mg PO ASDIRECTED 04/20/21 [History] Hydroxychloroquine Sulfate [Plaquenil] 200 mg PO BID 04/20/21 [History] Sodium Chloride for Inhalation [Sodium Chloride] 3 ml IH TID PRN 04/20/21 [History] guaiFENesin [Mucinex] 1,200 mg PO BID 04/20/21 [History] predniSONE [Prednisone] 5 mg PO PCDINNER 04/20/21 [History] Levofloxacin 750 mg PO QPM #5 tablet 04/23/21 [Rx] Oxygen Therapy Mode: Room Air Patient Handouts: Bronchiectasis, Levofloxacin tablets Referrals: Maranda Oden NP [Consulting Physician] - 05/08/21 10:15 am (You may contact the [facility] at [phone] if you need to be seen prior to scheduled appointment.) - Discharge Summary/Plan Comment DC Time >30 min.: No - Patient Data Vitals - Most Recent: Last Vital Signs Temp 37.1 C 04/23/21 08:45 Pulse 95 04/23/21 08:45 Resp 18 04/23/21 08:45 BP 111/59 L 04/23/21 08:45 Pulse Ox 95 04/23/21 08:45 Weight - Most Recent: 88.042 kg I&O - Last 24 hours: Intake & Output 04/22/21 04/23/21 04/23/21 22:59 06:59 14:59 Intake Total 980 Balance 980 KEYUR Results - Last 24 hrs: Microbiology 04/20/21 17:58 Gram Stain - Final Sputum - Expectorated Respiratory Culture - Final NORMAL RESPIRATORY EVIN 2 DAYS Med Orders - Current: Current Medications Acetaminophen (Acetaminophen 325 Mg Tab) 650 mg PO Q4H PRN PRN Reason: Pain (Mild 1-3)/fever Last Admin: 04/22/21 21:05 Dose: 650 mg Documented by: Acetylcysteine (Acetylcysteine 20% 200 Mg/Ml 4 Ml Nebulizer Soln Sdv) 200 mg NEB TID@0700,1500,2100 [facility] Last Admin: 04/23/21 07:01 Dose: 200 mg Documented by: Albuterol (Albuterol 0.083% 2.5 Mg/3 Ml Neb Soln) 2.5 mg NEB Q4H PRN PRN Reason: Shortness Of Breath/wheezing Last Admin: 04/21/21 04:16 Dose: 2.5 mg Documented by: Albuterol/Ipratropium (Albuterol/Ipratropium 3.0-0.5 Mg/3 Ml Neb Soln) 3 ml NEB QIDRT [facility] Last Admin: 04/23/21 07:01 Dose: 3 ml Documented by: Benzonatate (Benzonatate 100 Mg Cap) 100 mg PO TID PRN PRN Reason: Cough Last Admin: 04/21/21 11:26 Dose: 100 mg Documented by: Guaifenesin/Codeine Phosphate (Codeine/Guaifenesin 10-100 Mg/5 Ml Syrup 5 Ml Cup) 10 ml PO Q6H PRN PRN Reason: Cough Last Admin: 04/22/21 21:09 Dose: 10 ml Documented by: Hydroxychloroquine Sulfate (Hydroxychloroquine 200 Mg Tab) 200 mg PO BID [facility] Last Admin: 04/23/21 08:42 Dose: 200 mg Documented by: Ceftriaxone Sodium 1 gm/ (Sodium Chloride) 50 mls @ 100 mls/hr IV Q24H [facility] Last Admin: 04/22/21 14:09 Dose: 100 mls/hr Documented by: Lactobacillus Rhamnosus (Lactobacillus Rhamnosus Gg (Probiotic) Cap) 1 cap PO BID [facility] Last Admin: 04/23/21 08:42 Dose: 1 cap Documented by: Levofloxacin 250 mg/ (Levofloxacin 500 mg) 750 mg PO Q24H [facility] Last Admin: 04/22/21 17:57 Dose: 750 mg Documented by: Lorazepam (Lorazepam 2 Mg/Ml Sdv) 0.5 mg IVPUSH Q4H PRN PRN Reason: Nausea/Vomiting Lorazepam (Lorazepam 0.5 Mg Tab) 0.5 mg PO Q4H PRN PRN Reason: Anxiety Last Admin: 04/21/21 21:09 Dose: 0.5 mg Documented by: Magnesium Hydroxide (Magnesium Hydroxide 400 Mg/5 Ml Susp 30 Ml Cup) 30 ml PO Q12H PRN PRN Reason: Constipation Melatonin (Melatonin 3 Mg Tab) 9 mg PO BEDTIME PRN PRN Reason: Sleep Last Admin: 04/22/21 21:05 Dose: 9 mg Documented by: Ondansetron HCl (Ondansetron 4 Mg/2 Ml Sdv) 4 mg IV Q6H PRN PRN Reason: Nausea/Vomiting Ondansetron HCl (Ondansetron 4 Mg Tab.Dis) 4 mg PO Q6H PRN PRN Reason: Nausea able to take PO Oxycodone HCl (Oxycodone 5 Mg Tab) 5 mg PO Q4H PRN PRN Reason: Pain (moderate 4-6) Last Admin: 04/22/21 08:33 Dose: 5 mg Documented by: Prednisone (Prednisone 20 Mg Tab) 40 mg PO WITHBREAKFAST [facility] Last Admin: 04/23/21 08:42 Dose: 40 mg Documented by: Senna/Docusate Sodium (Docusate Sodium/Sennosides 50-8.6 Mg Tab) 1 tab PO BID PRN PRN Reason: Constipation Discontinued Medications Acetylcysteine (Acetylcysteine 20% 200 Mg/Ml 4 Ml Nebulizer Soln Sdv) 200 mg NEB TIDRT [facility] Last Admin: 04/21/21 07:39 Dose: 200 mg Documented by: Sodium Chloride (Normal Saline) 1,000 mls @ 100 mls/hr IV ASDIRECTED [facility] Last Admin: 04/21/21 05:43 Dose: 100 mls/hr Documented by: Levofloxacin/Dextrose 750 mg/ (Premix) 150 mls @ 100 mls/hr IV Q24H [facility] Last Admin: 04/21/21 17:54 Dose: 100 mls/hr Documented by: Lorazepam (Lorazepam 0.5 Mg Tab) Confirm Administered Dose 0.5 mg .ROUTE .STK- MED ONE Stop: 04/20/21 18:44 Last Admin: 04/20/21 18:47 Dose: Not Given Documented by: Methylprednisolone Sodium Succinate (Methylprednisolone Sodium Succinate 125 Mg/2 Ml Sdv) 62.5 mg IVPUSH ONETIME ONE Stop: 04/20/21 21:01 Last Admin: 04/20/21 20:52 Dose: 62.5 mg Documented by:
== END 2021-04-23 13:34 | disposition home or self-care (01) | DRG 189 ==
LOC: JP.ICU 17:11 → EDBD 17:11
PROVIDERS: ADMIT Internal Medicine; ATTEND Internal Medicine
DX: J96.01 Acute respiratory failure with hypoxia (principal); J47.1 Bronchiectasis with (acute) exacerbation; M06.9 Rheumatoid arthritis, unspecified
CPT/HCPCS: 36415; 80048; 85027; 86140; 87070; 87205; 94640; 94667; 94668; A9270-GY; J0696; J1956; J2930; J7030; J7512; J7620-GY